=== PATIENT | male | born 1995 | race Caucasian/White ===

== ENCOUNTER 2018-05-28 05:33 | Emergency (ER) | payer BC, MEDICAID ==
[2018-05-28] MEDS ORDERED: Pantoprazole 40 MG Vial IVPUSH ONE (05:51)
[2018-05-28] MEDS ORDERED: Sodium Chloride 0.9% 1,000 ML IV SCH (06:00)
[2018-05-28] MEDS ORDERED: Aluminum Hydroxide/Magnesium Hydroxide Susp 30 ML Cup PO ONE (06:02)
[2018-05-28 06:26] LABS: ACETAMINOPHEN < 2 ug/mL (<2)
--- NOTE | 2018-05-28 06:34 | EDM.PDOC ---
ED HPI GENERAL MEDICAL PROBLEM - General Stated Complaint: OVERDOSE Time Seen by Provider: 05/28/18 05:40 Source of Information: Reports: Patient History Limitations: Reports: No Limitations - History of Present Illness INITIAL COMMENTS - FREE TEXT/NARRATIVE: This pleasant 26-year-old [facility] [employer] college major student with know depression and hx of parents divorce at 3 year of age, and father known to have suicidal ideation and his father had hx of being treated in [facility] for six weeks. At 3:30 AM today patient took 100 tablets ibuprofen and 3 tablets of 100 milligrams Zoloft. He drove from [place] to [place] to his mother's house. Mother then prompted brought him to the ED. He is is suicidal "thinks about it sometimes," feels helpless and hopeless, feels guilty, has decreased energy, concentration is variable and approximately 50% of the time is decreased, he feels anxious, is sad, does not have delusions or hallucinations nor does he have homicidal thoughts. And his been treated for depression with Zoloft her milligrams daily His weight has increased lately. Currently weighs 20 pounds. 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 Mother notes he "takes on too much." "He is overwhelmed" and she thinks "his grades are in trouble." No history of previous suicidal behavior. He has had long-standing depression ED ROS GENERAL - Review of Systems Review Of Systems: ROS reveals no pertinent complaints other than HPI. Constitutional: Reports: No Symptoms HEENT: Reports: No Symptoms Respiratory: Reports: Other (History of asthma) Cardiovascular: Reports: No Symptoms Endocrine: Reports: No Symptoms GI/Abdominal: Reports: No Symptoms : Reports: No Symptoms Musculoskeletal: Reports: No Symptoms Skin: Reports: No Symptoms Neurological: Reports: No Symptoms Psychiatric: Reports: Depression Hematologic/Lymphatic: Reports: No Symptoms Immunologic: Reports: No Symptoms ED EXAM, GENERAL - Physical Exam Exam: See Below Free Text/Narrative:: Pleasant quiet appropriately communicative overweight hangman with good eye contact and without respiratory depression or tachycardia or diaphoresis Exam Limited By: No Limitations General Appearance: Alert, WD/WN, No Apparent Distress, Other (He doesn't have depressed dispostion) Eye Exam: Bilateral Eye: Normal Inspection (Normal pupils normal pupil reactivity. No nystagmus) Ears: Normal External Exam, Normal Canal, Hearing Grossly Normal, Normal TMs Ear Exam: Bilateral Ear: Auricle Normal, Canal Normal, TM normal Nose: Normal Inspection, Normal Mucosa, No Blood Throat/Mouth: Normal Inspection, Normal Lips, Normal Teeth, Normal Gums, Normal Oropharynx, Normal Voice, No Airway Compromise, Other Head: Atraumatic, Normocephalic Neck: Normal Inspection, Supple, Non-Tender, Full Range of Motion, Other (No tracheal tug no thyromegaly) Respiratory/Chest: No Respiratory Distress, Lungs Clear, Normal Breath Sounds, No Accessory Muscle Use, Chest Non-Tender Cardiovascular: Normal Peripheral Pulses, Regular Rate, Rhythm, No Edema, No Gallop, No JVD, No Murmur, No Rub Peripheral Pulses: 1+: Radial (R), Femoral (L), Dorsalis Pedis (L), Dorsalis Pedis (R) GI/Abdominal: Normal Bowel Sounds, Soft, Non-Tender, No Organomegaly, No Distention, No Abnormal Bruit, No Mass, Pelvis Stable, Other (Increased abdominal girth) (Male) Exam: No Hernia, Deferred Rectal (Males) Exam: Deferred Back Exam: Normal Inspection, Full Range of Motion Extremities: Normal Inspection, Normal Range of Motion, Non-Tender, No Pedal Edema, Normal Capillary Refill Neurological: Alert, Oriented, CN II-XII Intact, Normal Cognition, Normal Gait, Normal Reflexes, No Motor/Sensory Deficits Psychiatric: Normal Affect, Normal Mood Skin Exam: Warm, Dry, Intact, Normal Color Lymphatic: No Adenopathy EKG INTERPRETATION EKG Date: 05/28/18 Time: 06:30 Rhythm: NSR [place]: Normal P-Wave: Present QRS: Normal ST-T: Other (see notes below) QT: Normal EKG Interpretation Comments: Isolated T-wave inversion III and V1. Flattened T-wave in V2. Poor R-wave progression across the anterior precordial's. The computer reads this as "sinus rhythm IVCD consider right bundle-branch block." The QRS is borderline increased 120 ms and there is a RSR prime V1 to 3 and aVR that is borderline duration Course - Orders/Labs/Meds Orders: Active Orders 24 hr Category Date Time Status EKG Documentation Completion [RC] ASDIRECTED Care 05/28/18 06:22 Ordered EKG Documentation Completion [RC] ASDIRECTED Care 05/28/18 06:22 Ordered ACETAMINOPHEN [CHEM] Stat Lab 05/28/18 06:06 Received Blood Alcohol [ETHANOL BLOOD MEDICAL] [CHEM] Stat Lab 05/28/18 06:06 Received CBC WITH AUTO DIFF [HEME] Stat Lab 05/28/18 06:06 Received COMPREHENSIVE METABOLIC PN,CMP [CHEM] Stat Lab 05/28/18 06:06 Received DRUG SCREEN, URINE ALERE [URCHEM] Stat Lab 05/28/18 06:10 Received SALICYLATE [CHEM] Stat Lab 05/28/18 06:06 Received Sodium Chloride 0.9% [Normal Saline] 1,000 ml Med 05/28/18 06:00 Active IV ASDIRECTED EKG 12 Lead [EK] Routine Ther 05/28/18 06:22 Ordered Medication Orders Sodium Chloride (Normal Saline) 1,000 mls @ 150 mls/hr IV ASDIRECTED ALEXIA Meds: Medications Generic Name Dose Route Start Last Admin Trade Name Freq PRN Reason Stop Dose Admin Sodium Chloride 1,000 mls @ 150 mls/hr 05/28/18 06:00 Normal Saline IV ASDIRECTED ALEXIA Discontinued Medications Generic Name Dose Route Start Last Admin Trade Name Freq PRN Reason Stop Dose Admin Al Hydroxide/Mg Hydroxide 30 ml 05/28/18 06:02 Mag-Al Susp PO 05/28/18 06:03 ONETIME ONE Pantoprazole Sodium 40 mg 05/28/18 05:51 Protonix Iv IVPUSH 05/28/18 05:52 ONETIME ONE - Re-Assessments/Exams Free Text/Narrative Re-Assessment/Exam: 05/28/18 07:01 Patient's status has been discussed poison control with Dr. Maldonado. Care is turned over to Dr. Maldonado. 05/28/18 07:06 Free Text/Narrative Re-Assessment/Exam: 05/28/18 07:13 Discussion with poison control. Their advice: At 9:30 AM repeat metabolic panel. Ibuprofen can cause acute kidney injury and acidosis. And if is stable then Dr Maldonado can have patient to transfered to psychiatric care unit Departure - Departure Time of Disposition: 06:45 (He is depressed. He has had depression 5 years ( dysthymia). He is depressed because he's taking 18 credits/ semester. He is not performing in his usual "B" level but he is getting C's.) Disposition: DC/Tfer to Psych Hosp/Unit 65 Condition: Fair Clinical Impression: Suicidal ideation - Discharge Information *PRESCRIPTION DRUG MONITORING PROGRAM REVIEWED*: Not Applicable *COPY OF PRESCRIPTION DRUG MONITORING REPORT IN PATIENT [place]: Not Applicable Referrals: PCP,None [Primary Care Provider] - - My Orders Last 24 Hours: My Active Orders 05/28/18 06:00 Sodium Chloride 0.9% [Normal Saline] 1,000 ml IV ASDIRECTED 05/28/18 06:06 ACETAMINOPHEN [CHEM] Stat Blood Alcohol [ETHANOL BLOOD MEDICAL] [CHEM] Stat CBC WITH AUTO DIFF [HEME] Stat COMPREHENSIVE METABOLIC PN,CMP [CHEM] Stat SALICYLATE [CHEM] Stat 05/28/18 06:10 DRUG SCREEN, URINE ALERE [URCHEM] Stat 05/28/18 06:22 EKG Documentation Completion [RC] ASDIRECTED EKG Documentation Completion [RC] ASDIRECTED EKG 12 Lead [EK] Routine - Assessment/Plan Last 24 Hours: My Active Orders 05/28/18 06:00 Sodium Chloride 0.9% [Normal Saline] 1,000 ml IV ASDIRECTED 05/28/18 06:06 ACETAMINOPHEN [CHEM] Stat Blood Alcohol [ETHANOL BLOOD MEDICAL] [CHEM] Stat CBC WITH AUTO DIFF [HEME] Stat COMPREHENSIVE METABOLIC PN,CMP [CHEM] Stat SALICYLATE [CHEM] Stat 05/28/18 06:10 DRUG SCREEN, URINE ALERE [URCHEM] Stat 05/28/18 06:22 EKG Documentation Completion [RC] ASDIRECTED EKG Documentation Completion [RC] ASDIRECTED EKG 12 Lead [EK] Routine
== END 2018-05-28 10:35 | disposition home or self-care (01) ==
LOC: FB.ED 05:33
DX: F34.1 Dysthymic disorder (principal); F32.9 Major depressive disorder, single episode, unspecified; R45.87 Impulsiveness
CPT/HCPCS: 36415; 80053; 80305; 81001; 84443; 85025; 93005; 96361; 96374; 99283; A9270; C9113; G0480; J7030

== ENCOUNTER 2018-08-01 18:26 | Emergency (ER) | payer MEDICAID ==
[2018-08-01] MEDS ORDERED: Sodium Chloride 0.9% 1,000 ML IV ONE (18:44)
--- NOTE | 2018-08-01 18:48 | EDM.PDOC ---
ED HPI GENERAL MEDICAL PROBLEM - General Chief Complaint: Allergic Reaction Stated Complaint: HEADACHE, PAINFUL, NOSE COATARIZED Time Seen by Provider: 08/01/18 18:26 Source of Information: Reports: Patient, Family History Limitations: Reports: No Limitations - History of Present Illness INITIAL COMMENTS - FREE TEXT/NARRATIVE: 22 y.o.w.m came to the ed due to facial pressure a few hours after he was seen at [facility] for nasal cauterization in [facility] [place] to repair nasal veins. Pt did not have a nose bleed before the procedure. A few hours after the procedure , pt felt sinus pressure. 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 No other acute med issues. BP 151/91 RR 18 Pulse ox 98% on RA Temp 36.6 Pulse 84 Onset Date: 08/01/18 Onset Time: 14:00 Duration: Hour(s):, Intermittent, Improving Location: Reports: Face Quality: Reports: Dull Severity: Mild Improves with: Reports: Rest Worsens with: Reports: Movement Context: Reports: Other Associated Symptoms: Reports: Other (sinus pressure) - Related Data Allergies Allergy/AdvReac Type Severity Reaction Status Date / Time No Known Allergies Allergy Verified 08/01/18 18:35 Home Meds: Home Meds Sertraline [Zoloft] 100 mg PO DAILY 05/28/18 [History] Amoxicillin/Potassium Clav [Augmentin 875-125 Tablet] 1 each PO BID #20 tablet 08/01/18 [Rx] Montelukast [Singulair] 10 mg PO DAILY 08/01/18 [History] hydrOXYzine HCl [Atarax] 25 mg PO BID 08/01/18 [History] lamoTRIgine [Lamotrigine] 100 mg PO DAILY 08/01/18 [History] Past Medical History Respiratory History: Reports: Asthma Psychiatric History: Reports: Bipolar - Past Surgical History HEENT Surgical History: Reports: Other (See Below) Other HEENT Surgeries/Procedures: [place] teeth extraction. Dermatological Surgical History: Reports: Other (See Below) ED ROS ALLERGIC REACTION - Review of Systems Review Of Systems: See Below Constitutional: Reports: No Symptoms HEENT: Reports: Sinus Problem Respiratory: Reports: No Symptoms Cardiovascular: Reports: No Symptoms Endocrine: Reports: No Symptoms GI/Abdominal: Reports: No Symptoms : Reports: No Symptoms Musculoskeletal: Reports: No Symptoms Skin: Reports: No Symptoms Neurological: Reports: No Symptoms Psychiatric: Reports: No Symptoms Hematologic/Lymphatic: Reports: No Symptoms Immunologic: Reports: No Symptoms ED EXAM GENERAL NO PERIP PULSE - Physical Exam Exam: See Below Exam Limited By: No Limitations General Appearance: Alert, WD/WN, Mild Distress, Obese (Morbid) Eye Exam: Bilateral Eye: Normal Inspection Ears: Normal External Exam, Normal Canal Nose: Normal Inspection, Normal Mucosa, No Blood Throat/Mouth: Normal Inspection, Normal Lips, Normal Voice, No Airway Compromise Head: Atraumatic, Normocephalic Neck: Normal Inspection, Supple, Non-Tender, Full Range of Motion Respiratory/Chest: No Respiratory Distress, Lungs Clear, Normal Breath Sounds Cardiovascular: Normal Peripheral Pulses GI/Abdominal: Normal Bowel Sounds, Soft, Non-Tender, No Organomegaly, No Distention, No Abnormal Bruit (Male) Exam: Deferred Rectal (Males) Exam: Deferred Back Exam: Normal Inspection, Full Range of Motion Extremities: Normal Inspection, Normal Range of Motion Neurological: Alert, Oriented, CN II-XII Intact, Normal Cognition, Normal Gait Psychiatric: Normal Affect, Normal Mood Skin Exam: Warm, Dry, Intact Lymphatic: No Adenopathy Course - Vital Signs Text/Narrative:: 22 y.o.w.m came to the ed due to facial pressure a few hours after he was seen at [facility] for nasal cauterization in [facility] [place] to repair nasal veins. Pt did not have a nose bleed before the procedure. A few hours after the procedure , pt felt sinus pressure. 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 No other acute med issues. BP 151/91 RR 18 Pulse ox 98% on RA Temp 36.6 Pulse 84 PE: Morbid obese 22 y.o.w.m with sinus pressure Imaging: Facial CT showed an air fluid level at the pernasal sinuses, official report is pending labs: CBC and BMP were nl, His WBC was 12.5 however Impression: Facial pressure after Nasal procedure, sinusitis Tx; Augmentin, nasal spray Reexam: Improved Plan: D/C with instructions Last Recorded V/S: Last Vital Signs Temp 36.7 C 08/01/18 18:27 Pulse 64 08/01/18 19:34 Resp 18 08/01/18 19:34 BP 139/93 H 08/01/18 19:34 Pulse Ox 100 06/03/19 19:34 - Orders/Labs/Meds Orders: Active Orders 24 hr Category Date Time Status Max Facial Sinus wo Cont [CT] Stat Exams 08/01/18 18:45 Taken Labs: Laboratory Tests 08/01/18 08/01/18 Range/Units 19:05 19:05 WBC 12.3 H (4.5-12.0) X10-3/uL RBC 5.31 (4.30-5.75) x10(6)uL Hgb 16.4 (13.5-17.8) g/dL Hct 46.5 (30.0-51.3) % MCV 87.7 (80-96) fL MCH 30.8 (27.7-33.6) pg MCHC 35.2 (32.2-35.4) g/dL RDW 12.2 (11.5-15.5) % Plt Count 307 (125-369) X10(3)uL MPV 8.5 (7.4-10.4) fL Neut % (Auto) 76.0 (46-82) % Lymph % (Auto) 15.4 (13-37) % George % (Auto) 6.3 (4-12) % Eos % (Auto) 2 (1.0-5.0) % Baso % (Auto) 0 (0-2) % Neut # (Auto) 9.4 H (1.6-8.3) # Lymph # (Auto) 1.9 (0.6-5.0) # George # (Auto) 0.8 (0.0-1.3) # Eos # (Auto) 0.2 (0.0-0.8) # Baso # (Auto) 0.0 (0.0-0.2) # Sodium 142 (135-145) mmol/L Potassium 4.0 (3.5-5.3) mmol/L Chloride 107 (100-110) mmol/L Carbon Dioxide 25 (21-32) mmol/L BUN 14 (7-18) mg/dL Creatinine 1.1 (0.70-1.30) mg/dL Est Cr Clr Drug Dosing TNP Estimated GFR (MDRD) > 60 (>60) BUN/Creatinine Ratio 12.7 (9-20) Glucose 112 (80-116) mg/dL Calcium 9.3 (8.6-10.2) mg/dL Meds: Medications Discontinued Medications Generic Name Dose Route Start Last Admin Trade Name Bridget PRN Reason Stop Dose Admin Amoxicillin/Clavulanate Potassium 1 tab 08/01/18 20:45 08/01/18 20:50 Augmentin 875 Mg/125 Mg PO 08/01/18 20:46 1 tab ONETIME ONE Administration Sodium Chloride 1,000 mls @ 999 mls/hr 08/01/18 18:44 08/01/18 19:14 Normal Saline IV 08/01/18 19:44 999 mls/hr .BOLUS ONE Administration Departure - Departure Time of Disposition: 20:40 Disposition: Home, Self-Care 01 Condition: Good Clinical Impression: Sinusitis nasal Qualifiers: Sinusitis location: sphenoidal Chronicity: acute - Discharge Information Prescriptions: Amoxicillin/Potassium Clav [Augmentin 875-125 Tablet] 1 each PO BID #20 tablet Instructions: Amoxicillin; Clavulanic Acid tablets, Sinusitis, Adult, Easy-to- Read Referrals: PCP,None [Primary Care Provider] - Forms: ED Department Discharge Additional Instructions: Please take the ABx as recommended, please take tylenol/motrin for pain, Please f/u with ENT as needed, please come back if your symptoms gt worse acutely - My Orders Last 24 Hours: My Active Orders 08/01/18 18:45 Max Facial Sinus wo Cont [CT] Stat - Assessment/Plan Last 24 Hours: My Active Orders 08/01/18 18:45 Max Facial Sinus wo Cont [CT] Stat
[2018-08-01] MEDS ORDERED: Amoxicillin/Clavulanate K 875-125 MG Tab PO ONE (20:45)
--- NOTE | 2018-08-02 09:02 | CT ---
INDICATION: CT PARANASAL SINUSES: Spiral axial imagining of the paranasal sinuses was obtained with sagittal and coronal reconstructions 08/01/18--no comparisons. Total exam DLP = 853.53 mGy-cm. Frothy appearing material is noted in the right frontal air cells with opacification of multiple ethmoidal air cells and air-fluid level in the right maxillary antrum and what appear to be retention cysts bilaterally in the maxillary antra. There is opacification of almost the entire left nasal passage with the right nasal passage moderately patent. No definite bony erosion was seen. IMPRESSION: Areas of opacification, air-fluid level and frothy material in the paranasal sinuses with what appear to be retention cysts. This appearance could be on the basis of acute sinusitis. However, the possibility that it represents post-op changes with hemorrhage after recent operative procedure this afternoon , would also be consideration and findings should be correlated clinically. The report was called to Dr. Burnham at 2010 hours. JANET
== END 2018-08-01 21:21 | disposition home or self-care (01) ==
LOC: FB.ED 18:26
DX: J01.30 Acute sphenoidal sinusitis, unspecified (principal); F31.9 Bipolar disorder, unspecified; J45.909 Unspecified asthma, uncomplicated; Z79.899 Other long term (current) drug therapy
CPT/HCPCS: 36415; 70486; 80048; 85025; 96360; 99283; A9270; J7030